=== PATIENT | female | born 1995 | race African-American/Black ===

== ENCOUNTER 2018-01-06 08:02 | Emergency (ER) | payer SELFPAY ==
[~2018-01-06] VITALS: Ht 170.2 cm; Wt 80.0 kg
[~2018-01-06 08:02] MED LIST: METR1TAB76 PO; NORG1TAB29 PO
[2018-01-06 08:04] VITALS: BP 133/87; PULSE 94; RESP 18; TEMP 98.3; O2SAT 99
--- NOTE | 2018-01-06 08:30 | PD ---
HPI Chief Complaint: Certified Registered Nurse Practitioner Problem/Complaint Time Seen by Provider: 08:20 Travel History International Travel<30 days: No Contact w/Intl Traveler<30days: No Traveled to known affect area: No History of Present Illness HPI 22-year-old female presents with itchy area in her privates that feels like a yeast infection. She states she tried Monistat twice a couple weeks ago without improvement. She denies any discharge, abdominal pain, fever, dysuria or any other concurrent complaints. Quality is itchy. Location is privates. Duration is 1 month. She denies specific modifying factors. PFSH Past Medical History Diminished Hearing: No Headaches: Yes Immunizations Current: Yes Migraines: Yes ?: Not : 2 Para: 2 Past Surgical History Section: Yes (X 2) Other Surgery: Yes () Social History Alcohol Use: Yes (occ.) Tobacco Use: No Substance Use: No Allergies-Medications (Allergen,Severity, Reaction): Coded Allergies: No Known Allergies (Unverified Adverse Reaction, Unknown, 01/06/18) Reported Meds & Prescriptions Reported Meds & Active Scripts Active Low-Ogestrel (Norgestrel-Ethinyl Estradiol) 0.3-30 Mg-Mcg Tab 1 Tab PO DAILY Metronidazole 500 Mg Tab 500 Mg PO BID Review of Systems Except as stated in HPI: all other systems reviewed are Neg Physical Exam Narrative GENERAL: 22-year-old female in no apparent distress SKIN: Focused skin assessment warm/dry. HEAD: Atraumatic. Normocephalic. EYES: Pupils equal and round. No scleral icterus. No injection or drainage. ENT: No nasal bleeding or discharge. Mucous membranes pink and moist. NECK: Trachea midline. CARDIOVASCULAR: Regular rate and rhythm. RESPIRATORY: No accessory muscle use. No increased effort GASTROINTESTINAL: Abdomen soft, non-tender, nondistended. GENITOURINARY: Normal external genitalia without lesions or erythema. Vaginal vault with small amount of white thick discharge, samples taken MUSCULOSKELETAL: No obvious deformities. No clubbing. No cyanosis. No edema. NEUROLOGICAL: Awake and alert. No obvious cranial nerve deficits. Motor grossly within normal limits. Normal speech. PSYCHIATRIC: Appropriate mood and affect; insight and judgment normal. Data Data Last Documented VS Vital Signs Date Time Temp Pulse Resp B/P (MAP) Pulse Ox O2 Delivery O2 Flow Rate FiO2 01/06/18 08:04 98.3 94 18 133/87 (102) 99 Orders Orders Gc And Chlamydia Pcr (01/06/18 08:20) Wet Prep Profile (01/06/18 08:20) Ed Urine Pregnancytest Poc (01/06/18 08:20) Metronidazole (Flagyl) (01/06/18 09:15) Ed Discharge Order (01/06/18 09:37) Labs Laboratory Tests Test 01/06/18 08:30 Clue Cells (Wet Prep) PRESENT Vaginal Trichomonas (Wet Prep) NONE SEEN Vaginal Yeast (Wet Prep) NONE SEEN MDM Medical Decision Making Medical Screen Exam Complete: Yes Emergency Medical Condition: Yes Medical Record Reviewed: Yes (Past history confirmed) Interpretation(s) beta is negative Differential Diagnosis Yeast infection, , STD Narrative Course Will check test and wet prep and gonorrhea. Given symptoms will not treat prophylactically for gonorrhea and chlamydia beta is negative, wet prep is positive for clue cells, give treatment here with flagyl, Patient denies any new complaints, all questions answered. Patient knows that follow up is incumbent on them and to return to the emergency room immediately if new or worsening symptoms develop. Patient given strict return precautions, vitals reviewed and are normal, agrees to further workup as an outpatient. Diagnosis Primary Impression: Bacterial vaginosis Patient Instructions: General Instructions Additional Instructions: return as needed, follow with gynecology Med/Other Pt SpecificInfo: No Change to Meds Disposition: 01 DISCHARGE HOME Condition: Stable Nia Dimas MD January 06, 2018 08:30
[2018-01-06] MEDS ORDERED: metroNIDAZOLE 500 MG TAB PO ONE (09:15)
[2018-01-06 09:42] VITALS: BP 128/80
== END 2018-01-06 11:10 | disposition home or self-care (01) ==
LOC: NEPC 08:02
DX: N76.0 Acute vaginitis (principal); B96.89 Other specified bacterial agents as the cause of diseases classified elsewhere
CPT/HCPCS: 84703; 87210; 87491; 87591; 99283